=== PATIENT | female | born 1945 | race Caucasian/White ===

== ENCOUNTER → 2018-09-01 14:03 | Outpatient (BNVA) | payer MEDICARE, SELFPAY | PROVIDERS: Referring Provider Nurse Practitioner Family; Visit Provider Nurse Practitioner Adult Health | DX: G43.709 Chronic migraine without aura, not intractable, without status migrainosus (principal); R41.3 Other amnesia | CPT/HCPCS: 99204; 99214 ==

== ENCOUNTER 2018-09-01 16:13 | Outpatient (CLI) | payer MEDICARE, SELFPAY ==
[2018-09-01 19:18] LABS: TSH 1.99 uIU/mL (0.358-3.74); Vitamin B12 295 pg/mL (193-986)
== END 2018-09-01 16:33 ==
PROVIDERS: Nurse Practitioner Adult Health; PCP Nurse Practitioner Family; Visit Provider Psychiatry & Neurology Neurology
DX: R41.89 Other symptoms and signs involving cognitive functions and awareness (principal); G31.84 Mild cognitive impairment of uncertain or unknown etiology
CPT/HCPCS: 36415; 99204; 99214; 82607; 84443

== ENCOUNTER → 2018-10-15 15:07 | Outpatient (BNVA) | payer MEDICARE, SELFPAY | PROVIDERS: PCP Nurse Practitioner Family; Visit Provider Nurse Practitioner Adult Health | DX: G30.1 Alzheimer's disease with late onset (principal); F02.80 Dementia in other diseases classified elsewhere, unspecified severity, without behavioral disturbance, psychotic disturbance, mood disturbance, and anxiety; G43.009 Migraine without aura, not intractable, without status migrainosus | CPT/HCPCS: 99213 ==